=== PATIENT | male | born 1995 ===

== ENCOUNTER 2017-01-10 10:32 | Emergency (ER) | payer SELFPAY ==
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
[2017-01-10 10:54] LABS: BASOPHIL # 0.1 K/uL (0.0-0.2); BASOPHIL % 0.8 %; EOSINOPHIL # 0.1 K/uL (0.0-0.5); EOSINOPHIL % 0.7 %; HEMATOCRIT 44.6 % (37.0-53.0); HEMOGLOBIN 15.1 g/dL (12.0-17.0); IMMATURE GRANULOCYTE % 0.4 %; LYMPHOCYTE % 26.5 %; MCH 29.7 pg (27.0-34.0); MCHC 33.9 gm/dL (32.0-36.5); MCV 87.6 fl (83.0-98.0); MONOCYTE # 0.3 K/uL (0.0-1.0); MONOCYTE % 4.3 %; MPV 9.6 fl (9.4-12.4); NEUTROPHIL % 67.3 %; NRBC % 0 /100WBC (0-0.00); PLATELET COUNT 294 K/uL (150-450); RBC 5.09 M/uL (4.00-6.00); RDW-CV 13.7 % (11.9-14.6); WBC 7.5 K/uL (4.0-11.0)
[2017-01-10 11:12] LABS: ALBUMIN 4.8 gm/dL (3.5-5.0); ALK PHOS 112 IU/L (33-138); ALT 24 IU/L (12-78); ANION GAP 19.3 (10.0-19.0); AST 16 IU/L (10-40); BLOOD UREA NITROGEN 12 mg/dL (6-24); CALCIUM 9.2 mg/dL (8.5-10.5); CHLORIDE 110 mMol/L (96-110); CO2 21 mMol/L (22-32); ESTIMATED GFR (MDRD EQUATION) > 60; POTASSIUM 4.3 mMol/L (3.7-5.1); TOTAL BILIRUBIN 1.4 mg/dL (0.0-1.5); TOTAL PROTEIN 7.9 g/dL (6.0-8.4)
[2017-01-10 11:15] LABS: SODIUM 146 mMol/L (135-145)
[2017-01-10 11:55] LABS: BILIRUBIN URINE NEGATIVE (NEGATIVE); BLOOD URINE NEGATIVE /UL (NEGATIVE); COLOR URINE COLORLESS (YELLOW); GLUCOSE URINE NEGATIVE (NEGATIVE); KETONE URINE NEGATIVE (NEGATIVE); LEUKOCYTES URINE NEGATIVE /UL (NEGATIVE); NITRITE URINE NEGATIVE (NEGATIVE); PROTEIN URINE NEGATIVE (NEGATIVE); TURBIDITY URINE CLEAR (CLEAR); UROBILINOGEN URINE NORMAL (NORMAL)
[2017-01-10 12:16] LABS: BARBITURATE NEGATIVE (NEGATIVE); COCAINE NEGATIVE (NEGATIVE); OPIATES NEGATIVE (NEGATIVE)
[2017-01-10 12:17] LABS: AMPHETAMINE NEGATIVE (NEGATIVE)
== END 2017-01-10 13:19 | disposition disaster alternative care site (69) ==
LOC: GMED 10:32
PROVIDERS: Physician Assistant Medical
PROC: 0T9B70Z Drainage of Bladder with Drainage Device, Via Natural or Artificial Opening (ICD-10-PCS; principal; 2017-01-10)
DX: S80.212A Abrasion, left knee, initial encounter (principal); R46.89 Other symptoms and signs involving appearance and behavior; X58.XXXA Exposure to other specified factors, initial encounter
CPT/HCPCS: G0480

== ENCOUNTER → 2017-01-10 | Outpatient (CLI) | payer SELFPAY | END | disposition disaster alternative care site (69) | LOC: GAMB 10:05 | DX: F10.129 Alcohol abuse with intoxication, unspecified (principal); R41.82 Altered mental status, unspecified ==